=== PATIENT | female | born 1955 | race Two or more races ===

== ENCOUNTER 2023-06-28 12:20 | Emergency (ER) | payer OTHER, MEDICAID ==
[~2023-06-28] VITALS: Ht 157.5 cm; Wt 91.0 kg
[2023-06-28 13:31] LABS: Hematocrit 47.2 % (36.0-46.0); Hemoglobin 15.7 g/dL (12.2-16.2); Mean Corpuscular Hemoglobin 28.7 pg (28.0-32.0); Mean Corpuscular Hgb Conc. 33.3 g/dL (32.0-36.0); Mean Corpuscular Volume 86.3 fL (80.0-100.0); Red Blood Cells 5.47 10^6/uL (4.0-5.20); Red Cell Distribution Width 14.1 % (11.8-14.3); White Blood Cell 2.8 10^3/uL (4.4-10.8)
[2023-06-28 13:38] LABS: Basophils % (manual) 0 (0.0-2.0); Blast Cells 0; Eosinophils % (manual) 0 (0-7); Metamyelocytes % 0; Myelocytes % 0; Promyelocytes % 0
[2023-06-28 13:45] LABS: Band Neutrophils % (manual) 3; Lymphocytes % (manual) 41 (10.0-50.0); Monocytes % (manual) 27 (0-12); Reactive Lymphocytes 2
[2023-06-28 13:46] LABS: Platelet Estimate Decreased; RBC Morphology Normal
[2023-06-28 13:47] LABS: Alanine Aminotransferase 51 U/L (7-40); Alkaline Phosphatase 75 U/L (46-116); Anion Gap 10 (5-15); Aspartate Aminotransferase 99 U/L (13-40); BUN/Creatinine Ratio 13.9 (10.0-20.0); Blood Urea Nitrogen 10 mg/dL (9-23); Carbon Dioxide 23 mmol/L (20-30); Chloride 103 mmol/L (98-107); Glucose 110 mg/dL (74-106); INR 1.02 (0.9-1.15); Partial Thromboplastin Time 27.8 SEC (24.5-34.5); Potassium 3.4 mmol/L (3.5-5.1); Prothrombin Time 10.8 sec (9.3-11.8); Sodium 136 mmol/L (136-145)
[2023-06-28 13:48] LABS: Bilirubin, Total 0.8 mg/dL (0.2-1.0)
[2023-06-28] MEDS: SODIUM CHLORIDE 0.9% 1,000 ML IVB ONE (15:10)
[2023-06-28] MEDS: ACETAMINOPHEN 325 MG TAB PO ONE (15:25)
[2023-06-28] MEDS: ONDANSETRON HCL 4 MG/2 ML VIAL IV ONE (15:25)
[2023-06-28] MEDS: KETOROLAC TROMETH 30 MG/ML 1ML VIAL IV ONE (15:26)
[2023-06-28] MEDS: FAMOTIDINE (10MG/ML) 2ML VL IV ONE (15:26)
[2023-06-28 16:56] LABS: COVID19 ANTIGEN SOFIA FIA NEGATIVE (NEGATIVE)
[2023-06-28 16:57] LABS: Rapid Influenza A Negative (Negative); Rapid Influenza B Negative (Negative)
[2023-06-28 19:16] VITALS: BP 120/66; RESP 18; TEMP 97.7; O2SAT 98
[2023-06-28 20:20] VITALS: PULSE 60
[2023-06-28] MEDS: IOHEXOL 300 MG/ML 100ML BOTTLE IJ ONE (20:22)
[2023-06-28] MEDS ORDERED: AUG875T PO (22:21)
[2023-06-28] MEDS: AMOXICILLIN/CLAVUL 875 MG TAB PO ONE (23:00)
[2023-06-29 13:14] LABS: Magnesium 2.2 mg/dL (1.6-2.6)
== END 2023-06-28 23:15 | disposition home or self-care (01) ==
LOC: ER 12:20
DX: B34.9 Viral infection, unspecified (principal); J40 Bronchitis, not specified as acute or chronic; D72.819 Decreased white blood cell count, unspecified; E78.5 Hyperlipidemia, unspecified; E11.9 Type 2 diabetes mellitus without complications; Z88.1 Allergy status to other antibiotic agents; Z88.8 Allergy status to other drugs, medicaments and biological substances
CPT/HCPCS: 36415; 71045; 74177; 80053; 83605; 83690; 83735; 83880; 84484; 85007; 85027; 85610; 85730; 87426; 87804; 93005; 96361; 96374; 96375; 99285; J1885; J2405; J3490; J7030; Q9967